=== PATIENT | female | born 1970 | race Caucasian/White ===

== ENCOUNTER 2017-03-28 12:51 | Emergency (ER) | payer OTHER ==
[2017-03-28 13:01] VITALS: O2SAT 97
--- NOTE | 2017-03-28 14:09 | C.PDOC ---
History Of Present Illness 46 year old female with a past medical history of Lupus and Hepatitis-A who presents to the ED complaining of vaginal hemorrhaging for the last 5 days. Also reports large blood clots. She started her period on March 09 which was drug safety specialist than normal and about 2 weeks earlier than usual. Since then, she has not stopped bleeding and it has increased in flow. Reports having a mild case of diarrhea and vomiting on 03/25 that resolved over night with associated hemorrhaging that has not stopped. LNMP was in January. She admits to using a large number of pads to try to control the bleeding regularly. Has taken 3 Advil with minimal cease in bleeding. She denies any pain otherwise. She denies pain, pelvic trauma, foreign body insertion. PMD: none Time Seen by Provider: 03/28/17 13:10 Chief Complaint (Nursing): Female Genitourinary Past Medical History Reviewed: Historical Data, Nursing Documentation, Vital Signs Vital Signs: Last Vital Signs Temp 98.3 F 03/28/17 12:58 Pulse 94 H 03/28/17 12:58 Resp 18 03/28/17 12:58 BP 120/73 03/28/17 12:58 Pulse Ox 97 03/28/17 17:04 Surgical History: No Surg Hx Family History: States: No Known Family Hx - Social History Hx Alcohol Use: Yes Hx Substance Use: No - Immunization History Hx Tetanus Toxoid Vaccination: No Hx Influenza Vaccination: No Hx Pneumococcal Vaccination: No Review Of Systems Except As Marked, All Systems Reviewed And Found Negative. Constitutional: Negative for: Fever Gastrointestinal: Negative for: Abdominal Pain Physical Exam - Physical Exam Additional Physical Exam Comments: Constitutional: No acute distress. Head: Normocephalic. Atraumatic. Eyes: PERRL. ENT: Moist mucous membranes. Neck: Supple. Cardiovascular: Regular rate. Radial pulse 2+ bilaterally. No murmur. Chest: No tenderness. Respiratory: Clear to auscultation bilaterally. GI: Soft. Nontender. Nondistended. Back: No CVA tenderness. Musculoskeletal: No tenderness or swelling. Skin: No rash. Neurologic: Alert, no focal deficit. ED Course And Treatment - Laboratory Results Result Diagrams: 03/28/17 14:07 03/28/17 14:07 O2 Sat by Pulse Oximetry: 97 Medical Decision Making Medical Decision Making: Patient in no distress. HR normal. Hb normal. Patient will follow up with OBGYN , instructed to return to ED immediately for worsening bleeding, chest pain, dyspnea, LOC, palpitations, or any other problem. Advised to stop taking NSAIDs. Disposition - Disposition Referrals: Lucia Lino MD [Staff Provider] - Disposition: HOME/ ROUTINE Disposition Time: 16:49 Condition: STABLE Additional Instructions: Pelvic ultrasound History: Vaginal bleeding. Comparison: None available. Technique: Real-time sonography was performed through the pelvis. Findings: Uterus: 8.7 x 4.8 x 5.7 centimeters. Heterogeneous echotexture. Anteverted. Endometrium measures 1.1 centimeters. Right ovary: 4.3 x 2.7 x 2.9 centimeters. Normal flow. Hypoechoic cyst measuring 2.9 x 2.2 x 2.1 centimeters. Left ovary: 2.7 x 2.3 x 2.8 centimeters. Normal flow. Echogenic calcification noted at the level of the left ovary measuring 2 x 3 x 2 millimeters. Hypoechoic cyst within the left ovary measuring 1.6 x 1.3 x 1.1 centimeters. Impression: Echogenic calcification at the level of the left ovary measuring 2 x 3 x 2 millimeters which may represent a small dermoid focus. Clinical correlation. Correlation with noncontrast CT scan of the pelvis may be helpful if clinically indicated. Bilateral ovarian cysts. Mild prominence of the endometrium measuring up to 1.1 centimeters. Instructions: Dysfunctional Uterine Bleeding (ED) Forms: [facility] (Nepalese) - Clinical Impression Clinical Impression: Dysfunctional uterine bleeding
[2017-03-28 14:12] LABS: BASO # 0.1 K/uL (0.0-0.2); BASO % 0.7 % (0.0-2.0); EOS # 0.2 K/uL (0.0-0.7); EOS % 2.8 % (0.0-4.0); HEMATOCRIT 33.4 % (34.0-47.0); LYMPH # 1.8 K/uL (1.0-4.3); LYMPH % 22.2 % (20.0-40.0); MEAN CELL VOLUME 77.9 fL (81.0-99.0); MEAN CORPUSCULAR HEMOGLOBIN 25.8 pg (27.0-31.0); MEAN CORPUSCULAR HGB CONC 33.1 g/dL (33.0-37.0); MONO # 0.7 K/uL (0.0-0.8); MONO % 8.6 % (0.0-10.0); RED CELL DISTRIBUTION WIDTH 15.1 % (11.5-14.5); WHITE BLOOD COUNT 8.1 K/uL (4.8-10.8)
[2017-03-28 14:27] LABS: ALKALINE PHOSPHATASE 113 U/L (38-126); ALT/SGPT 47 U/L (9-52); AST/SGOT 40 U/L (14-36); BILIRUBIN,TOTAL 0.4 mg/dL (0.2-1.3); BLOOD UREA NITROGEN 11 mg/dL (7-17); CALCIUM 8.3 mg/dl (8.6-10.4); CARBON DIOXIDE 30 mmol/L (22-30); CHLORIDE 106 mmol/L (98-107); GFR AFRICAN-AMERICAN > 60; GLUCOSE,RANDOM 98 mg/dL (65-105); POTASSIUM 3.7 mmol/L (3.6-5.2); SODIUM 139 mmol/L (132-148); TOTAL PROTEIN 8.4 g/dL (6.3-8.3)
[2017-03-28 14:30] LABS: ALB/GLOB RATIO 0.8 (1.0-2.1)
--- NOTE | 2017-03-28 16:44 | US ---
Pelvic ultrasound History: Vaginal bleeding. Comparison: None available. Technique: Real-time sonography was performed through the pelvis. Findings: Uterus: 8.7 x 4.8 x 5.7 centimeters. Heterogeneous echotexture. Anteverted. Endometrium measures 1.1 centimeters. Right ovary: 4.3 x 2.7 x 2.9 centimeters. Normal flow. Hypoechoic cyst measuring 2.9 x 2.2 x 2.1 centimeters. Left ovary: 2.7 x 2.3 x 2.8 centimeters. Normal flow. Echogenic calcification noted at the level of the left ovary measuring 2 x 3 x 2 millimeters. Hypoechoic cyst within the left ovary measuring 1.6 x 1.3 x 1.1 centimeters. Impression: Echogenic calcification at the level of the left ovary measuring 2 x 3 x 2 millimeters which may represent a small dermoid focus. Clinical correlation. Correlation with noncontrast CT scan of the pelvis may be helpful if clinically indicated. Bilateral ovarian cysts. Mild prominence of the endometrium measuring up to 1.1 centimeters.
[2017-03-28 17:15] VITALS: BP 118/79; PULSE 72; RESP 16; TEMP 98.2
== END 2017-03-28 17:13 | disposition home or self-care (01) ==
LOC: C.ER 12:51
DX: N93.8 Other specified abnormal uterine and vaginal bleeding (principal)